=== PATIENT | female | born 1975 | race Caucasian/White ===

== ENCOUNTER 2018-10-12 05:21 | Day surgery (SDC) | payer OTHER ==
[~2018-10-12 05:21] MED LIST: SYNTHR PO
[2018-10-12] MEDS ORDERED: DOXYCYCLINE HY100 M2 PO (10:17)
[2018-10-12] MEDS ORDERED: Tylenol #3 PO (10:17)
== END 2018-10-12 12:40 | disposition home or self-care (01) ==
LOC: CIR.AMB 05:21
DX: N84.0 Polyp of corpus uteri (principal); D25.0 Submucous leiomyoma of uterus